=== PATIENT | male | born 1960 | race Caucasian/White ===

== ENCOUNTER 2017-05-09 17:40 | Emergency (ER) | payer BC ==
[~2017-05-09] VITALS: Ht 188 cm; Wt 86.2 kg
[~2017-05-09 17:40] MED LIST: GLIPIZIDE; LORAZEPAM; TAMS-11 PO
[2017-05-09 17:46] VITALS: BP 136/81; PULSE 74; RESP 14; TEMP 96.9; O2SAT 98
[2017-05-09 18:54] LABS: BASOPHILS % (AUTO) 0.6 % (0.0-2.0); EOSINOPHILS # (AUTO) 0.1 K/uL (0.0-0.4); EOSINOPHILS % (AUTO) 2.6 % (0.0-4.0); HEMATOCRIT 41.8 % (36-54); HEMOGLOBIN 14.1 g/dL (14.0-18.0); LYMPHOCYTES # (AUTO) 1.2 K/uL (1.0-5.5); MEAN CORPUSCULAR HEMOGLOBIN 31 pg (27-31); MEAN CORPUSCULAR HGB CONC 34 % (32-36); MEAN CORPUSCULAR VOLUME 93 fL (79.0-98.0); MONOCYTES # (AUTO) 0.3 K/uL (0.0-1.0); MONOCYTES % (AUTO) 6.5 % (1.7-9.3); NEUTROPHILS # (AUTO) 2.8 K/uL (1.8-7.7); NEUTROPHILS % (AUTO) 62.3 % (40.0-70.0); PLATELET COUNT (AUTO) 174 K/uL (130-430); RED BLOOD CELL COUNT(AUTO) 4.52 MIL/uL (4.2-6.2); RED CELL DISTRIBUTION WIDTH 12.1 % (9.0-15.0); WHITE BLOOD COUNT (AUTO) 4.4 K/uL (4.8-10.8)
[2017-05-09 19:07] LABS: CALCIUM 8.9 mg/dL (8.4-11.0); CREATININE 0.84 mg/dL (0.55-1.30); POTASSIUM 3.7 mmol/L (3.5-5.1)
[2017-05-09 19:12] LABS: ALBUMIN 3.6 g/dL (3.4-4.8); TOTAL BILIRUBIN 0.8 mg/dL (0.0-1.0)
[2017-05-09 19:38] VITALS: BP 125/74; PULSE 63; RESP 14; TEMP 97; O2SAT 97
== END 2017-05-09 19:38 | disposition home or self-care (01) ==
LOC: SED 17:40
DX: R07.89 Other chest pain (principal); E11.9 Type 2 diabetes mellitus without complications; I10 Essential (primary) hypertension; F41.9 Anxiety disorder, unspecified; E78.00 Pure hypercholesterolemia, unspecified; N40.0 Benign prostatic hyperplasia without lower urinary tract symptoms; Z90.89 Acquired absence of other organs
CPT/HCPCS: 36415; 80053; 84484; 85025; 93005; 99285

== ENCOUNTER 2018-08-18 04:33 | Emergency (ER) | payer BC ==
[~2018-08-18] VITALS: Ht 188 cm; Wt 85.3 kg
[2018-08-18 04:35] VITALS: BP_SYST 151
--- NOTE | 2018-08-18 04:35 | NUR ---
Patient to ER bed 8 to gown for evaluation. Side rails up. Report given to KENAN Judd.
--- NOTE | 2018-08-18 04:44 | NUR ---
Pt came in AAOX4 with a complaint of left quadrant abdominal pain. Pt verbalized he self induced vomiting today. No shortness of breath, headache noted. Has history of hypertension, dm type 2, apendectomy. No other complaint noted. Safety precaution provided. Will continue to monitor Pt.
[2018-08-18] MEDS ORDERED: NACL 0.9% 1,000 ML IV ONE (04:48)
--- NOTE | 2018-08-18 04:50 | NUR ---
ER MD Alaniz at bedside for medical evaluation.
[2018-08-18] MEDS ORDERED: LOSA25TA3 PO (04:53)
[2018-08-18] MEDS ORDERED: LORA1TAB PO (04:53)
[2018-08-18] MEDS ORDERED: CHLO473M5 MM (04:53)
[2018-08-18] MEDS ORDERED: SIMV40TA2 PO (04:53)
[2018-08-18] MEDS ORDERED: PIOG30TA70 PO (04:53)
[2018-08-18] MEDS ORDERED: AMOX500C2 PO (04:53)
[2018-08-18] MEDS ORDERED: CANA1TAB4 PO (04:53)
[2018-08-18] MEDS ORDERED: ESCI10TA PO (04:53)
[2018-08-18] MEDS ORDERED: LINA5TAB2 PO (04:53)
[2018-08-18] MEDS ORDERED: IBUP-1969 PO (04:53)
[2018-08-18] MEDS ORDERED: ONDANSETRON HCL 4 MG/2 ML VIAL IVP ONE (05:00)
[2018-08-18 05:29] LABS: BILIRUBIN,URINE NEGATIVE (NEGATIVE); BLOOD, URINE NEGATIVE (NEGATIVE); CLARITY/URINE CLEAR (CLEAR); COLOR,URINE YELLOW (YELLOW); GLUCOSE,URINE 3+ (NEGATIVE); KETONES,URINE 1+ (NEGATIVE); LEUKOCYTE ESTERASE ,URINE NEGATIVE (NEGATIVE); NITRITE, URINE NEGATIVE (NEGATIVE); PROTEIN URINE NEGATIVE (NEGATIVE); UROBILINOGEN,URINE 0.2 (0.2-1.0)
[2018-08-18 05:32] LABS: BASOPHILS % (AUTO) 0.5 % (0.0-2.0); EOSINOPHILS # (AUTO) 0.1 K/uL (0.0-0.4); EOSINOPHILS % (AUTO) 0.9 % (0.0-4.0); HEMATOCRIT 47.1 % (36-54); HEMOGLOBIN 15.6 g/dL (14.0-18.0); LYMPHOCYTES # (AUTO) 0.9 K/uL (1.0-5.5); LYMPHOCYTES % (AUTO) 15.3 % (20.5-51.5); MEAN CORPUSCULAR HEMOGLOBIN 31 pg (27-31); MEAN CORPUSCULAR HGB CONC 33 % (32-36); MEAN CORPUSCULAR VOLUME 94 fL (79.0-98.0); MONOCYTES # (AUTO) 0.4 K/uL (0.0-1.0); NEUTROPHILS # (AUTO) 4.8 K/uL (1.8-7.7); NEUTROPHILS % (AUTO) 77.3 % (40.0-70.0); PLATELET COUNT (AUTO) 211 K/uL (130-430); RED BLOOD CELL COUNT(AUTO) 4.99 MIL/uL (4.2-6.2); RED CELL DISTRIBUTION WIDTH 12.2 % (9.0-15.0); WHITE BLOOD COUNT (AUTO) 6.2 K/uL (4.8-10.8)
[2018-08-18 05:35] LABS: ALBUMIN 4.1 g/dL (3.4-4.8); CALCIUM 9.3 mg/dL (8.4-11.0); CREATININE 0.93 mg/dL (0.55-1.30); POTASSIUM 3.8 mmol/L (3.5-5.1); TOTAL BILIRUBIN 1.4 mg/dL (0.0-1.0)
[2018-08-18 06:12] LABS: BACTERIA,URINE FEW /HPF (None Seen); RBC,URINE 0-3 /HPF (0-3); WBC,URINE 0-3 /HPF (0-3)
--- NOTE | 2018-08-18 06:42 | NUR ---
Pt to Radiology
--- NOTE | 2018-08-18 06:51 | NUR ---
Pt back to Room 8, able to tolerate CT scan.
--- NOTE | 2018-08-18 07:09 | NUR ---
RECEIVED REPORT FROM [facility] FROM [facility], WILL ASSUME CARE.
--- NOTE | 2018-08-18 07:34 | NUR ---
PT SLEEPING QUIETLY, NO CHANGES. AWAITING RESULTS OF CT SCAN
--- NOTE | 2018-08-18 07:43 | NUR ---
DR SAEZ AT BEDSIDE RE-EVALUATING PT AT THIS TIME.
[2018-08-18 08:33] VITALS: BP_SYST 137
--- NOTE | 2018-08-18 08:34 | NUR ---
Patient given written and verbal discharge instructions and verbalizes understanding. ER MD discussed with patient the results and treatment provided. Patient in stable condition. ID arm band removed. IV catheter removed intact and dressing applied, no active bleeding. Rx of TYLENOL WITH CODEINE #3, ZOFRAN given. Patient educated on pain management and to follow up with PMD. Pain Scale 0/10. Opportunity for questions provided and answered. Medication side effect fact sheet provided.
== END 2018-08-18 08:33 | disposition home or self-care (01) ==
LOC: SED 04:33
DX: K80.20 Calculus of gallbladder without cholecystitis without obstruction (principal); K44.9 Diaphragmatic hernia without obstruction or gangrene; N40.0 Benign prostatic hyperplasia without lower urinary tract symptoms; F41.9 Anxiety disorder, unspecified; E78.00 Pure hypercholesterolemia, unspecified; E11.9 Type 2 diabetes mellitus without complications; I10 Essential (primary) hypertension; Z86.79 Personal history of other diseases of the circulatory system; Z79.899 Other long term (current) drug therapy
CPT/HCPCS: 36415; 74176; 80053; 81000; 83690; 85025; 85610; 96374; 99284; J2405; J7030

== ENCOUNTER 2022-03-25 13:22 | Emergency (ER) | payer BC ==
[~2022-03-25] VITALS: Ht 188 cm; Wt 81.6 kg
[~2022-03-25 13:22] MED LIST changes: +AMOX500C2 PO; +CANA1TAB4 PO; +CHLO473M5 MM; +ESCI10TA PO; -GLIPIZIDE; +IBUP-1969 PO; +LINA5TAB2 PO; +LORA1TAB PO; -LORAZEPAM; +LOSA25TA3 PO; +PIOG30TA70 PO; +SIMV40TA2 PO; -TAMS-11 PO
[2022-03-25 13:26] VITALS: BP_SYST 119
--- NOTE | 2022-03-25 13:30 | NUR ---
Placed in room 3 . Placed on rn managed care, blood pressure machine and pulse oximeter. To gown for exam. Side rails up.
--- NOTE | 2022-03-25 13:37 | NUR ---
PT CAME IN FROM HOME REPORTS EATING A [employer] LAST NIGHT FOR DINNER, SHORTLY AFTER LIPS BEGAN TO SWELL, TOOK BENADRYL BUT SWELLING PERSISTS TODAY NO TONGUE OR THROAT SWELLING OR DIFFICULTY BREATHING. DENIES ANY KNOWN ALLERGIES. PT IS AMBULATORY, AAOX4, VSS
--- NOTE | 2022-03-25 13:55 | NUR ---
ER DR. PARSONS EXAMINING PT
[2022-03-25] MEDS ORDERED: PENI500T PO (13:57)
[2022-03-25] MEDS ORDERED: ACYC400T19 PO (13:57)
[2022-03-25] MEDS ORDERED: MED4 PO (13:57)
[2022-03-25 14:05] VITALS: BP_SYST 119
--- NOTE | 2022-03-25 14:06 | NUR ---
Patient given written and verbal discharge instructions and verbalizes understanding. ER MD discussed with patient the results and treatment provided. Patient in stable condition. ID arm band removed. Rx of ACYCLOVIR, MEDROL AND PENICILLIN given. Patient educated on pain management and to follow up with PMD. Pain Scale 0/10. Opportunity for questions provided and answered. Medication side effect fact sheet provided.
== END 2022-03-25 14:05 | disposition home or self-care (01) ==
LOC: SED 13:22
DX: K13.0 Diseases of lips (principal); B00.2 Herpesviral gingivostomatitis and pharyngotonsillitis; R22.30 Localized swelling, mass and lump, unspecified upper limb; E11.9 Type 2 diabetes mellitus without complications; I10 Essential (primary) hypertension; Z79.899 Other long term (current) drug therapy
CPT/HCPCS: 99283